=== PATIENT | male | born 1990 | race Asian ===

== ENCOUNTER 2017-09-07 09:42 | Emergency (ER) | payer SELFPAY ==
[~2017-09-07] VITALS: Ht 175.3 cm; Wt 78.5 kg
[2017-09-07 09:46] VITALS: Ht 175.3 cm; Wt 78.5 kg
[2017-09-07 10:22] VITALS: BP 182/122
[2017-09-07 10:32] LABS: BASOPHIL % 0.3 % (0-2); CALCIUM 9.1 mg/dL (8.5-10.1); CARBON DIOXIDE 23.3 mmol/L (21-32); CHLORIDE SERUM 100 mmol/L (98-107); CREATININE SERUM 0.8 mg/dL (0.7-1.3); GFR1 > 60 mL/min; PLATELET COUNT 154 x10^3mcL (130-400); RED CELL DISTRIBUTION WIDTH 13.1 % (11.5-14.5); SODIUM SERUM 137 mmol/L (136-145)
[2017-09-07 10:39] LABS: ALBUMIN 3.9 g/dL (3.4-5.0); ALKALINE PHOSPHATASE 103 U/L (46-116); BILIRUBIN TOTAL 0.4 mg/dL (0.20-1.00); MAGNESIUM 2.2 mg/dL (1.8-2.4); PHOSPHOROUS 3.5 mg/dL (2.5-4.9); TOTAL PROTEIN, SERUM 7.3 g/dL (6.4-8.2)
[2017-09-07 10:58] LABS: ALT/SGPT 108 U/L (16-63)
[2017-09-07 10:59] LABS: GLUCOSE SERUM 353 mg/dL (74-106)
[2017-09-07 11:16] LABS: AST/SGOT 54 U/L (15-37)
== END 2017-09-07 10:22 | disposition short-term general hospital (02) ==
LOC: ED 09:42
PROVIDERS: Specialist
DX: I21.9 Acute myocardial infarction, unspecified (principal); I10 Essential (primary) hypertension
CPT/HCPCS: 83880; J1644; J3490